=== PATIENT | female | born 1970 | race Caucasian/White ===

== ENCOUNTER 2020-04-19 14:15 | Emergency (ER) | payer OTHER ==
[~2020-04-19] VITALS: Ht 160 cm; Wt 60.0 kg
[2020-04-19] MEDS ORDERED: triamcinolone acetonide 40mg/ml inj IM ONE (15:50)
[2020-04-19] MEDS ORDERED: CEPH500C5 PO (15:54)
[2020-04-19] MEDS ORDERED: EPIN0.3P3 IM (15:54)
[2020-04-19 16:18] VITALS: BP 126/90
== END 2020-04-19 16:20 | disposition home or self-care (01) ==
LOC: ER 14:16
DX: T63.441A Toxic effect of venom of bees, accidental (unintentional), initial encounter (principal); T78.40XA Allergy, unspecified, initial encounter; X58.XXXA Exposure to other specified factors, initial encounter; Y92.89 Other specified places as the place of occurrence of the external cause
CPT/HCPCS: 96372; 99283; J3301

== ENCOUNTER 2021-11-20 12:24 | Emergency (ER) | payer OTHER ==
[~2021-11-20] VITALS: Ht 160 cm; Wt 53.2 kg
[~2021-11-20 12:24] MED LIST: EPIN0.3P3 IM
[2021-11-20] MEDS ORDERED: acetaminophen 325mg tablet PO ONE (13:10)
[2021-11-20 13:37] VITALS: BP 138/84
== END 2021-11-20 13:43 | disposition home or self-care (01) ==
LOC: ER 12:24
DX: S01.111A Laceration without foreign body of right eyelid and periocular area, initial encounter (principal); W18.39XA Other fall on same level, initial encounter; Y93.89 Activity, other specified; Y92.89 Other specified places as the place of occurrence of the external cause; Y99.8 Other external cause status
CPT/HCPCS: 70486; 99284